=== PATIENT | female | born 1985 | race Caucasian/White ===

== ENCOUNTER → 2017-08-04 | Outpatient (CLI) | payer OTHER ==
--- NOTE | 2017-08-21 08:13 | SLEEP ---
[address] [address] SLEEP STUDY REPORT Name: GENNY DUARTE Room: [facility]#: [id number] Admission: 08/04/17 Attend Phys: Sathish Caraballo MD Discharge: Date of : 87 Report #: [id number] THIS REPORT FOR: //name// CC: Sathish Castellanos MD This study has been reviewed in its entirety by a board certified sleep specialist REFERRING PHYSICIAN: Dr. Caraballo. TYPE OF STUDY: Sleep study, split night study. INDICATION: Hypersomnia, snoring. METHODS: The following parameters were monitored: Frontal, central and occipital EEG; electro-oculogram; submentalis EMG; nasal and oral airflow; anterior tibialis EMG; body position and electrocardiogram. Additionally, thoracic and abdominal movements were recorded by inductance plethysmography. Oxygen saturation was monitored using pulse oximeter. The tracing was scored using 30-second epochs. Hypopneas were scored per the [place] [employer] definition using the 4% desaturation criteria. This was split night study. DIAGNOSTIC PORTION OF THE STUDY: Total recording time during the diagnostic portion of the study is 168 minutes. Total sleep time was 138.5 minutes. Sleep efficiency was 82.4. Latency to sleep was 16.5 minutes. Latency to REM was 160.5 minutes. SLEEP STAGING: During the diagnostic portion of the study, stage N1 of 6.4% of total sleep time, stage N2 of 77.2% of total sleep time, stage N3 of 5.4% of total sleep time, stage REM 11% total sleep time. During the diagnostic portion of the study, the patient had 1 obstructive apnea, 22 hypopneas, with overall apnea-hypopnea index of 10.1. The patient was captured during the bilateral REM sleep during the diagnostic portion of the study. The average heart rate was 65.2 and no arrhythmias were reported. The limb movement index was 6.9. During the diagnostic portion of the study, the average O2 saturation was 97%, and the lowest O2 saturation recorded was 88%. During the titration portion of the study, the patient was titrated on a pressure of 5, 6 and 7 cm of water. At 7 cm of water, the patient was captured during sleep for 152.6 minutes, 38 minutes of those were [place] [address] SLEEP STUDY REPORT Name: GENNY DUARTE Room: [facility] Henson#: [id number] Admission: 08/04/17 Attend Phys: Sathish Caraballo MD Discharge: Date of : 87 Report #: [id number] apnea-hypopnea index at this level had improved to 0.4 per hour and the lowest O2 saturation 91% with an average of 95%. IMPRESSION: Obstructive sleep apnea with apnea-hypopnea index of 10.1 per hour, with oxygen desaturation to a jacqueline of 88%. Please note during the diagnostic portion of the study portion, the patient was not captured during supine or REM sleep. RECOMMENDATIONS: 1. Given the history of hypersomnia in the setting of mild obstructive sleep apnea, would recommend treatment with the CPAP therapy. Recommend starting the patient on a trial of CPAP of pressure of 7 cm of water, with a close clinical followup and data download. 2. Recommend avoiding sedatives, hypnotics or alcohol close to bedtime. 3. Avoid driving or operating machinery while drowsy. 4. Recommend maintaining ideal body weight. <ELECTRONICALLY SIGNED> By: Abiodun June MD 08/21/17 0813 [id number] Caraballo MD /nt
== END ==
LOC: M.SLEEPLAB 20:56
DX: G47.33 Obstructive sleep apnea (adult) (pediatric) (principal)

== ENCOUNTER → 2018-02-24 | Outpatient (CLI) | payer BC | LOC: M.ULTRA 08:00 | DX: M79.89 Other specified soft tissue disorders (principal); M79.662 Pain in left lower leg ==